=== PATIENT | female | born 1975 | race Two or more races ===

== ENCOUNTER 2025-07-15 13:41 | Inpatient (IN) | payer MEDICAID, OTHER ==
[~2025-07-15] VITALS: Ht 154.9 cm; Wt 68.1 kg
--- NOTE | 2025-07-15 15:08 | ED.PDOC ---
History of Present Illness HPI Comments 49-year-old female presents with a chief complaint of chest pain x 2 days. Patient states that her pain is localized to her sternal region and right chest region, nonradiating, describes as sharp, and states that the pain began spontaneously. Patient mentions that the pain began while she was cleaning at home. 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 Hx Family History Family History: Reviewed,noncontributory to illness Social History Smoker: Non-Smoker Alcohol: Denies ETOH Use Drugs: Denies Drug Use Lives In: Home Constitutional: denies: chills, diaphoresis, fatigue, fever, malaise, sweats, weakness, others EENTM: denies: blurred vision, double vision, ear bleeding, ear discharge, ear drainage, ear pain, ear ringing, eye pain, eye redness, hearing loss, mouth pain, mouth swelling, nasal discharge, nose bleeding, nose congestion, nose pain, photophobia, tearing, throat pain, throat swelling, voice changes, others Respiratory: denies: cough, hemoptysis, orthopnea, SOB at rest, shortness of breath, SOB with excertion, stridor, wheezing, others Cardiovascular: reports: chest pain; denies: dizzy spells, diaphoresis, Dyspnea on exertion, edema, irregular heart beat, left arm pain, lightheadedness, palpitations, PND, syncope, others Gastrointestinal: denies: abdomen distended, abdominal pain, blood streaked bowels, constipated, diarrhea, dysphagia, difficulty swallowing, hematemesis, melena, nausea, poor appetite, poor fluid intake, rectal bleeding, rectal pain, vomiting, others Genitourinary: denies: abnormal vagina bleeding, burning, dyspareunia, dysuria, flank pain, frequency, hematuria, incontinence, pain, , vagina discharge, urgency, others Neurological: denies: dizziness, fainting, headache, left sided numbness, left sided weakness, numbness, paresthesia, pre-existing deficit, right sided numbness, right sided weakness, seizure, speech problems, tingling, tremors, weakness, others Musculoskeletal: denies: back pain, gout, joint pain, joint swelling, muscle pain, muscle stiffness, neck pain, others Integumetry: denies: bruises, change in color, change in hair/nails, dryness, laceration, lesions, lumps, rash, wounds, others Allergic/Immunocompromised: denies: Difficulty Healing, Frequent Infections, Hives, Itching, others Hematologic/Lymphatic: denies: anemia, blood clots, easy bleeding, easy bruising, swollen glands, others Endocrine: denies: excessive hunger, excessive sweating, excessive thirst, excessive urination, flushing, intolerance to cold, intolerance to heat, unexplained weight gain, unexplained weight loss, others Psychiatric: denies: anxiety, bipolar disorder, depression, hopeless, panic disorder, schizophrenia, sleepless, suicidal, others All Other Systems: Reviewed and Negative Physical Exam General Appearance: No Apparent Distress, Normal HEENT: Normal ENT Inspection, Pharynx Normal, TMs Normal Neck: Full Range of Motion, Non-Tender, Normal, Normal Inspection Respiratory: Chest Non-Tender, Lungs Clear, No Accessory Muscle Use, No Respiratory Distress, Normal Breath Sounds Cardiovascular: No Edema, No JVD, No Murmur, No Gallop, Normal Peripheral Pulses, Regular Rate/Rhythm Breast Exam: Deferred Gastrointestinal: No Organomegaly, Non Tender, No Pulsatile Mass, Normal Bowel Sounds, Soft Genitalia: Deferred Pelvic: Deferred Rectal: Deferred Extremities: No calf tenderness, Normal capillary refill, Normal inspection, Normal range of motion, Non-tender, No pedal edema Musculoskeletal : Apperance: Normal Neurologic: Alert, manufacturing controls engineer II-XII nml as Tested, No Motor Deficits, Normal Affect, Normal Mood, No Sensory Deficits Cerebellar Function: Normal Reflexes: Normal Skin: Dry, Normal Color, Warm Lymphatic: No Adenopathy Was a procedure done? Was a procedure done?: No EKG EKG : Pulse Rate (adult): 62 [place]: Normal Cardiac Rhythm: NSR Block: None Hypertrophy: None ST: Normal Differential Dx Considerations may include: Differential diagnosis includes STEMI, NSTEMI, pleurisy, chest wall pain, anxiety, pneumonia, lung mass, GERD. However patient appears to be quite calm and not anxious person. She states that she had one episode of chest pain just like this two months ago but she did never saw anybody. I will admit the patient for unstable angina to be assessed by drier feeder Due to concerns for patients condition deteriorating, the care required my highest level of attention and readiness to intervene. I assessed the patient, reviewed the medical records, ordered the appropriate tests and treatments, then reassessed for results and responsiveness. I communicated with medical personnel and consultants and formulated a plan of care. Total critical care time excludes any procedures X-Ray, Labs, Meds, VS Vital Signs Date Time Temp Pulse Resp B/P (MAP) Pulse Ox O2 Delivery O2 Flow Rate FiO2 07/15/25 16:23 84 18 96 Room Air* 0 21 07/15/25 15:44 98.6 67 16 144/79 (100) 97 98.6 07/15/25 15:08 62 07/15/25 14:37 62 07/15/25 13:48 70 07/15/25 13:44 98.4 71 18 142/52 97 98.4 Lab Test 07/15/25 16:02 07/15/25 13:56 Range/Units Troponin I High Sensitivity 19 18 </=34 ng/L White Blood Count 4.3 L 4.4-10.8 10^3/uL Red Blood Count 3.87 L 4.0-5.20 10^6/uL Hemoglobin 11.5 L 12.2-16.2 g/dL Hematocrit 34.1 L 36.0-46.0 % Mean Corpuscular Volume 88.1 80.0-100.0 fL Mean Corpuscular Hemoglobin 29.8 28.0-32.0 pg Mean Corpuscular Hemoglobin Concent 33.8 32.0-36.0 g/dL Red Cell Distribution Width 15.4 H 11.8-14.3 % Platelet Count 240 140-450 10^3/uL Mean Platelet Volume 8.6 6.9-10.8 fL Neutrophils (%) (Auto) 45.9 37.0-80.0 % Lymphocytes (%) (Auto) 41.5 10.0-50.0 % Monocytes (%) (Auto) 10.1 0.0-12.0 % Eosinophils (%) (Auto) 2.1 0.0-7.0 % Basophils (%) (Auto) 0.4 0.0-2.0 % Neutrophils # (Auto) 2.0 1.6-8.6 10 ^3/uL Lymphocytes # (Auto) 1.8 0.4-5.4 10 ^3/uL Monocytes # (Auto) 0.4 0-1.3 10 ^3/uL Eosinophils # (Auto) 0.1 0-0.8 10 ^3/uL Basophils # (Auto) 0 0-0.2 10 ^3/uL Nucleated Red Blood Cells 0.2 % Sodium Level 139 136-145 mmol/L Potassium Level 3.9 3.5-5.1 mmol/L Chloride Level 104 98-107 mmol/L Carbon Dioxide Level 28 20-31 mmol/L Anion Gap 7 5-15 Blood Urea Nitrogen 13 9-23 mg/dL Creatinine 0.70 0.550-1.02 mg/dL Glomerular Filtration Rate Calc 107 >90 mL/min BUN/Creatinine Ratio 18.6 10.0-20.0 Serum Glucose 80 74-106 mg/dL Calcium Level 9.0 8.7-10.4 mg/dL Current Medications Medications (Trade) Dose Ordered Sig/Lucia Route Start Time Stop Time Status Last Admin Acetaminophen/ Hydrocodone Bitart ([place] 5/325MG Tab) 1 tab ONCE ONCE PO 07/15/25 15:00 07/15/25 15:03 DC 07/15/25 16:22 Time of 1ST Reevaluation: 15:28 Reevaluation 1ST: Unchanged Patient Education/Counseling: Diagnosis, Treatment, Need For Follow Up Family Education/Counseling: No Family Present SEPSIS Sepsis Screen Date sepsis recognized/suspect: Jul 15, 2025 Time Sepsis recognized/suspect: 1344 Recent Procedure: No On Antibiotic Therapy: No Respiratory Rate >20: No Heart Rate >90: No Temp<36 C (96.8 F) or >38.3 C: No SBP <90 or MAP <65 mmHG: No New Acute Mental Status Change: No Is the patient on CPAP, BIPAP,: No Physician Orders Electrocardigram (07/15/25 13:53) Electrocardigram (07/15/25 14:53) Urinalysis (07/15/25 13:58) Troponin-I Hs (07/15/25 17:48) Chest Xray 1 View (07/15/25 15:00) Continuous Ekg Monitoring 08,12,16,20,00,04 (8/20/25 15:00) Head Without Contrast (07/15/25 15:00) Vital Signs Date Time Temp Pulse Resp B/P (MAP) Pulse Ox O2 Delivery O2 Flow Rate FiO2 07/15/25 16:23 84 18 96 Room Air* 0 21 07/15/25 15:44 98.6 67 16 144/79 (100) 97 98.6 07/15/25 15:08 62 07/15/25 14:37 62 07/15/25 13:48 70 07/15/25 13:44 98.4 71 18 142/52 97 98.4 Laboratory Tests Test 07/15/25 13:56 White Blood Count 4.3 10^3/uL (4.4-10.8) L Medications Medications Dose Ordered Sig/Lucia Route Start Time Stop Time Status Last Admin Dose Admin Acetaminophen/ Hydrocodone Bitart 1 tab ONCE ONCE PO 07/15/25 15:00 07/15/25 15:03 DC 07/15/25 16:22 Departure 1 Departure Time of Disposition: 18:20 Impression: Primary Impression: Unstable angina Disposition: ADMITTED INPATIENT Admit to: Tele Condition: Serious Discharged With: Self Critical Care Note Critical Care Time?: Yes (45 min-critical care time only) Critical care comment: Due to concerns for patients condition deteriorating, the care required my highest level of attention and readiness to intervene. I assessed the patient, reviewed the medical records, ordered the appropriate tests and treatments, then reassessed for results and responsiveness. I communicated with medical personnel and consultants and formulated a plan of care. Total critical care time excludes any procedures Stability Stability form required: No Heart Score Heart Score: Heart Score Response (Comments) Value History Highly Suspicious 2 EKG Normal 0 Age 45-64 1 Risk Factors 1 or 2 risk factors 1 Troponin 1-2 x's Normal limit 1 Total 5 I personally scribed for BRADY JIMENEZ MD ([email or web address]) on 07/15/25 at 15:08. Electronically submitted by Saad Spring ([email or web address]). BRADY JIMENEZ MD Jul 15, 2025 15:08
--- NOTE | 2025-07-15 15:27 | DVH ---
CHEST RADIOGRAPH Indication: CP Technique: Single frontal view of the chest was obtained Comparison: None FINDINGS: Lines and Tubes: None Lungs: No focal consolidation. Pleura: No effusion. No pneumothorax. Cardiomediastinal contours: Unremarkable Bones: No acute osseous abnormality. Deformity of the left humeral head. IMPRESSION: No acute cardiopulmonary disease.
--- NOTE | 2025-07-15 15:39 | DVH ---
CT brain without contrast CLINICAL INDICATION: HEADACHE FINDINGS: The study was performed in a multidetector scanner. This study performed taking axial image s from the skull base up to the vertex. Both brain and bone windows are photographed. Dose lowering techniques have been used including automated exposure control and adjustment of mA and /or KV according to patient size. Normal and symmetrical shape and density of brain parenchyma above and below the tentorium is seen. T here is no mass, midline shift or hydrocephalus. No intra/extra-axial collections demonstrated. There is no intracranial hemorrhage. The calvarium is intact. IMPRESSION: 1. Normal brain and skull. Computed Tomographic Radiation Dosimetry Report: Total CTDI vol = 54.58mGy Total DLP = 1.71mGy-cm All CT scans at this medical facility are performed using dose modulation techniques as appropriate to a performed exam including the following: Automated exposure control was utilized; adjustment of the M A and/or KvP according to patient size; and use of iterative reconstruction technique.
[2025-07-15 16:15] LABS: Chloride 104 mmol/L (98-107); Potassium 3.9 mmol/L (3.5-5.1); Sodium 139 mmol/L (136-145)
[2025-07-15 16:16] LABS: Anion Gap 7 (5-15); Carbon Dioxide 28 mmol/L (20-31); Hematocrit 34.1 % (36.0-46.0); Hemoglobin 11.5 g/dL (12.2-16.2); Mean Corpuscular Hemoglobin 29.8 pg (28.0-32.0); Mean Corpuscular Volume 88.1 fL (80.0-100.0); Nucleated Red Blood Cells % 0.2 %
[2025-07-15 16:17] LABS: Calcium 9.0 mg/dL (8.7-10.4)
[2025-07-15 16:21] LABS: BUN/Creatinine Ratio 18.6 (10.0-20.0); Blood Urea Nitrogen 13 mg/dL (9-23); Glucose 80 mg/dL (74-106)
[2025-07-15] MEDS: HYDROcodone-ACET 5/325MG TAB PO ONE (16:22)
[2025-07-15 16:23] VITALS: PULSE 84; RESP 18; O2SAT 96
[2025-07-15 20:16] LABS: Urine Amorphous Crystal FEW /hpf (None Seen); Urine Protein, UAD Negative (Negative)
--- NOTE | 2025-07-15 23:12 | DVHHP2 ---
History of Present Illness History of Present Illness This is a 49 year old female with past medical history of HTN on losartan-HCTZ came to ER with a complaint of chest pain for last 3 days, which is worsen around 11:00 a.m, 8/10 intensity, substernal, localized, no aggravating or relieving factors and pain persist approximately 2 hours. Chest pain started during cleaning her house but not associated with any nausea, vomiting, SOB, palpitation, sweating, visual disturbance. Patient stated her father, mother, grandfather having history of CAD. Patient also complain headache which is on and off not associated with any symptoms. Denies any smoking, ETOH or any substance abuse. Currently patient evaluated in ER, denies any SOB, headache, any other focal weakness. Never seen by agricultural crop farm manager, no stress test or angiogram done before. 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 Dyspnea, Edema, Lt Headedness, Other Gastrointestinal: No: Nausea, Vomiting, Abdominal Pain, Diarrhea, Constipation, Melena, Hematochezia, Other Genitourinary: No Dysuria, No Frequency, No Incontinence, No Hematuria, No Retention, No Other Musculoskeletal: No: other, neck pain, shoulder pain, arm pain, back pain, hand pain, leg pain, foot pain Skin: No: Rash, Lesions, Jaundice, Bruising, Other Neurological: No: Weakness, Numbness, Incoordination, Change in speech, Confusion, Seizures, Other Allergies: Coded Allergies: Amoxicillin (Verified Allergy, Unknown, 07/15/25) Medications Current Medications Medications Dose Ordered Sig/Lucia Route Start Time Stop Time Status Last Admin Dose Admin Acetaminophen 650 mg Q6HP PRN PO 07/15/25 23:15 UNV Nitroglycerin 0.4 mg Q5MINP PRN SL 07/15/25 23:15 UNV Morphine Sulfate 2 mg Q30M PRN IV 07/15/25 23:15 UNV Exam Vital Signs Vital Signs Date Time Temp Pulse Resp B/P (MAP) Pulse Ox O2 Delivery O2 Flow Rate FiO2 07/15/25 22:37 98.4 65 16 134/93 (107) 99 98.4 07/15/25 20:22 Room Air 07/15/25 16:23 0 21 General Appearance: Alert, Oriented X3, Cooperative HEENT: Atraumatic, PERRLA, EOMI Respiratory: Clear to auscultation, Normal air movement Cardiovascular: Normal S1, No murmurs Abdominal: Normal bowel sounds, Soft, No tenderness Extremities: No clubbing, No cyanosis, No edema Skin: No rashes, No breakdown, No significant lesion Neuro: Normal gait, Normal speech, Strength at 5/5 X4 ext, Normal tone, Sensation intact Labs/Xrays Labs Test 07/15/25 19:00 07/15/25 18:10 07/15/25 13:56 Range/Units Urine Color Light-yellow Yellow Urine Clarity Clear Clear Urine pH 7.0 5.0-9.0 Urine Specific [place] 1.022 1.001-1.035 Urine Protein Negative Negative Urine Ketones Negative Negative Urine Blood Negative Negative /uL Urine Nitrite Negative Negative Urine Bilirubin Negative Negative Urine Urobilinogen Normal Negative mg/dL Urine Leukocyte Esterase 1+ Negative /uL Urine RBC 1 0 - 4 /hpf Urine Microscopic WBC 6 H 0-5 /HPF Urine Squamous Epithelial Cells Few <5 /hpf Urine Amorphous Crystals Few None Seen /hpf Urine Bacteria None seen None Seen /hpf Urine Glucose Normal Normal mg/dL Troponin I High Sensitivity 19 </=34 ng/L White Blood Count 4.3 L 4.4-10.8 10^3/uL Red Blood Count 3.87 L 4.0-5.20 10^6/uL Hemoglobin 11.5 L 12.2-16.2 g/dL Hematocrit 34.1 L 36.0-46.0 % Mean Corpuscular Volume 88.1 80.0-100.0 fL Mean Corpuscular Hemoglobin 29.8 28.0-32.0 pg Mean Corpuscular Hemoglobin Concent 33.8 32.0-36.0 g/dL Red Cell Distribution Width 15.4 H 11.8-14.3 % Platelet Count 240 140-450 10^3/uL Mean Platelet Volume 8.6 6.9-10.8 fL Neutrophils (%) (Auto) 45.9 37.0-80.0 % Lymphocytes (%) (Auto) 41.5 10.0-50.0 % Monocytes (%) (Auto) 10.1 0.0-12.0 % Eosinophils (%) (Auto) 2.1 0.0-7.0 % Basophils (%) (Auto) 0.4 0.0-2.0 % Neutrophils # (Auto) 2.0 1.6-8.6 10 ^3/uL Lymphocytes # (Auto) 1.8 0.4-5.4 10 ^3/uL Monocytes # (Auto) 0.4 0-1.3 10 ^3/uL Eosinophils # (Auto) 0.1 0-0.8 10 ^3/uL Basophils # (Auto) 0 0-0.2 10 ^3/uL Nucleated Red Blood Cells 0.2 % Sodium Level 139 136-145 mmol/L Potassium Level 3.9 3.5-5.1 mmol/L Chloride Level 104 98-107 mmol/L Carbon Dioxide Level 28 20-31 mmol/L Anion Gap 7 5-15 Blood Urea Nitrogen 13 9-23 mg/dL Creatinine 0.70 0.550-1.02 mg/dL Glomerular Filtration Rate Calc 107 >90 mL/min BUN/Creatinine Ratio 18.6 10.0-20.0 Serum Glucose 80 74-106 mg/dL Calcium Level 9.0 8.7-10.4 mg/dL SEPSIS Sepsis Screen Date sepsis recognized/suspect: Jul 15, 2025 Time Sepsis recognized/suspect: 2024 Recent Procedure: No On Antibiotic Therapy: No Respiratory Rate >20: No Heart Rate >90: No Temp<36 C (96.8 F) or >38.3 C: No SBP <90 or MAP <65 mmHG: No New Acute Mental Status Change: No Is the patient on CPAP, BIPAP,: No Physician Orders Iron Panel (07/15/25 22:30) Ferritin (07/15/25 22:30) Stool Occult Blood (07/15/25 22:34) Drug Screen (07/15/25 22:35) Communication Order (07/15/25 22:35) Admit (07/15/25 23:06) Code Status (07/15/25 23:06) Cardiac Diet-2gna,Lofat,Lochol (07/16/25 Breakfast) Echo 2d Mode Cardiac Dop (07/15/25 23:06) Acetaminophen Tablet (Tylenol Tablet) (07/15/25 23:15) Nitroglycerin Sublingual (Ntrostat Subli (07/15/25 23:15) Morphine Sulfate Injection (07/15/25 23:15) Notify Of Changes From Base (07/15/25 23:06) Secondary Education Professor For 24 Hours (07/15/25 23:06) Emergency Dysrhythmia Protocol (07/15/25 23:06) Rhythm Strips Once Every Shift (07/15/25 23:06) Losartan Tablet (Cozaar Tablet) (07/16/25 10:00) Hydrochlorothiazide Tablet (Hydrochlorot (07/16/25 10:00) Vital Signs Date Time Temp Pulse Resp B/P (MAP) Pulse Ox O2 Delivery O2 Flow Rate FiO2 07/15/25 22:37 98.4 65 16 134/93 (107) 99 98.4 07/15/25 20:22 98.8 64 20 121/79 (93) 98 98.8 07/15/25 20:22 64 20 99 Room Air 07/15/25 18:18 98.3 64 16 140/66 (90) 99 98.3 07/15/25 16:23 84 18 96 Room Air* 0 21 07/15/25 15:44 98.6 67 16 144/79 (100) 97 98.6 Laboratory Tests Test 07/15/25 13:56 White Blood Count 4.3 10^3/uL (4.4-10.8) L Medications Medications Dose Ordered Sig/Lucia Route Start Time Stop Time Status Last Admin Dose Admin Acetaminophen/ Hydrocodone Bitart 1 tab ONCE ONCE PO 07/15/25 15:00 07/15/25 15:03 DC 07/15/25 16:22 1 TAB Assessment/Plan Assessment/Plan Chest pain to rule out ACS In ER patient received [place] 5-[address] head without contrast: No intracranial abnormality. CXR: no cardiopulmonary disease. EKG: Sinus rhythm, HR 62, QTC 439 Troponin 18>19>19 Will start statin after calculating ASCVD score. Lipid profile, HbA1c, UDS ordered Echo ordered Telemetry monitors Headache CT head without contrast:There is no mass, midline shift or hydrocephalus. No intra/extra-axial collections demonstrated. There is no intracranial hemorrhage. Tylenol 650 mg p.o. q.6 p.r.n. Chest pain due to Costochondritis Sternal area tender on deep palpation Patient received [place] at ER and pain improving Tylenol 650 mg p.o. q.6 p.r.n. Essential hypertension Losartan-HCTZ 25-12.5 mg p.o. daily Monitor blood pressure Cardiac diet Iron-deficiency anemia Hemoglobin 11.5, HCT 34.1 MCH 29.8, MCV 78.3, RDW 15.4 No signs symptoms of active bleeding Iron panel, ferritin, occult blood test ordered Diet: Cardiac GI prophylaxis: Pantoprazole 40 mg p.o. daily DVT prophylaxis: Patient ambulating Goals of care discussions, more than 28 minute spent with patient. Full code status. Case discussed with Dr. Byers Plan discussed with: Patient, Other (Nurse) My Orders Orders - ANNIA CHEN RESIDENT Procedure Category Date Status Time Admit ADMIT 07/15/25 Transmitted 23:06 Code Status CODE 07/15/25 Transmitted 23:06 Cardiac DIET 07/16/25 Transmitted Diet-2gna,Lofat,Lochol Breakfast Echo 2d Mode Cardiac US 07/15/25 Transmitted DOP 23:06 Acetaminophen Tablet [facility]A 07/15/25 Transmitted (Tylenol Tablet) 23:15 Nitroglycerin PHA 07/15/25 Transmitted Sublingual (Ntrostat 23:15 Morphine Sulfate PHA 07/15/25 Transmitted Injection 23:15 Notify Of Changes [facility] 07/15/25 Transmitted From Base 23:06 Secondary Education Professor For [facility] 07/15/25 Transmitted 24 Hours 23:06 Emergency Dysrhythmia [facility] 07/15/25 Transmitted Protocol 23:06 Rhythm Strips Once [facility] 07/15/25 Transmitted Every Shift 23:06 Losartan Tablet [facility] 07/16/25 Transmitted (Cozaar Tablet) 10:00 Hydrochlorothiazide [facility] 07/16/25 Transmitted Tablet (Hydrochlorot 10:00 Date of Service: Jul 15, 2025 Billing Provider: DELVIN BYERS MD Common Visit Codes: 05402-YWNGPXP INP/OBS CARE (HIGH) Secondary Visit Codes: 40053-[id number] CARE PLAN 30 MINUTES ANNIA CHEN RESIDENT Jul 15, 2025 23:12
[2025-07-15] MEDS ORDERED: NITROGLYCERIN 0.4 MG SL TAB SL PRN (23:15)
[2025-07-15] MEDS ORDERED: MORPHINE SULFATE INJ 2 MG/ml SYRG IV PRN (23:15)
[2025-07-15 23:47] LABS: Iron 89.0 ug/dL (50-170)
[2025-07-15 23:50] LABS: Total Iron Binding Capacity 416.0 ug/dL (250-425)
[2025-07-16] VITALS (9 sets, daily range): BP systolic 104–148; BP diastolic 53–83; PULSE 58–79; RESP 16–19; TEMP 97.7–98; O2SAT 96–100
--- NOTE | 2025-07-16 00:27 | ECG ---
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
[2025-07-16] MEDS: PANTOPRAZOLE 40 MG TAB PO SCH (05:33)
[2025-07-16 06:24] LABS: Opiate Scree,Urine Neg (NEGATIVE); Phencyclidine Screen, Urine Neg (NEGATIVE)
[2025-07-16 06:33] LABS: Amphetamine Screen, Urine Neg (NEGATIVE); Barbiturate Scree,Urine Neg (NEGATIVE); Benzodiazephine Screen, Urine Neg (NEGATIVE); Cannabinoid Screen, Urine Neg (NEGATIVE); Cocaine Screen, Urine Neg (NEGATIVE)
--- NOTE | 2025-07-16 07:01 | ECG ---
[facility] Test Date: 2025-07-15 Test Time: 13:48:51 Pat Name: ADAIR ZAMORANO Department: ED Room: 0286T Gender: F Business Executive: ovidio : 1975 Requested By: EMERGENCY EMERGENCY Order Number: [id number] Reading MD: Measurements Intervals [place] Rate: 70 P: 22 CA: 140 QRS: 55 QRSD: 118 T: 68 QT: 429 QTc: 463 Interpretive Statements Sinus rhythm Ventricular premature complex Probable left atrial enlargement Nonspecific intraventricular conduction delay Nonspecific T abnormalities, lateral leads Please click the below link to view image of tracing.
[2025-07-16 07:47] LABS: Alanine Aminotransferase 19 U/L (7-40); Albumin 4.2 g/dL (3.2-4.8); Anion Gap 8 (5-15); BUN/Creatinine Ratio 14.5 (10.0-20.0); Bilirubin, Total 0.3 mg/dL (0.2-1.0); Blood Urea Nitrogen 9 mg/dL (9-23); Calcium 9.2 mg/dL (8.7-10.4); Carbon Dioxide 28 mmol/L (20-31); Chloride 105 mmol/L (98-107); Glucose 80 mg/dL (74-106); Potassium 3.6 mmol/L (3.5-5.1); Sodium 141 mmol/L (136-145); Total Protein 7.2 g/dL (5.7-8.2)
[2025-07-16 07:50] LABS: Alkaline Phosphatase 124 U/L (46-116)
[2025-07-16 08:45] LABS: Triglycerides 82 mg/dL (< 150)
[2025-07-16 08:47] LABS: Cholesterol 179 mg/dL (< 200)
[2025-07-16 08:49] LABS: HDL Cholesterol 66 mg/dL (40-59)
[2025-07-16] MEDS: LOSARTAN POTASSIUM 25 MG TAB PO SCH (08:53)
[2025-07-16] MEDS: hydroCHLOROthiazide 25 MG TAB PO SCH (08:54)
[2025-07-16] MEDS: ACETAMINOPHEN 325 MG TAB PO PRN (12:12)
--- NOTE | 2025-07-16 19:39 | DVHPNRES ---
Progress Note Date Seen: Jul 16, 2025 Resident Creating Document: FAUSTO OCONNOR RESIDENT Medical Necessity Reason Pt with a Central, PICC or Fol: No Subjective Review of Systems 43-year-old female with past medical history of hypertension came to the hospital with complaints of chest pain and headache for 2 days. She describes the pain as 9/10 in intensity, radiating to the right arm with no aggravating or relieving factors. She sees her parents and grandparents had history of acute coronary syndrome. PMHx: Hypertension PSHx: Denies Family history: History of acute coronary syndrome in parents Social history: Denies alcohol smoking or recreational drugs Home medication: Losartan hydrochlorothiazide Allergic history: Amoxicillin General: patient denies fever, fatigue, weaknes, sweating, any recent changes in appetite and weight HEENT: Complains of headache Cardiovascular: Denies chest pain, palpitations, dyspnea on exertion, orthopnea, or claudication. Respiratory: No cough, and wheezing. Gastrointestinal: Denies nausea, vomiting, dysphagia, odynophagia, heartburn, abdominal pain, flatulence, bloating, diarrhea, constipation, change in stool, or blood in stool. Genitourinary: No dysuria, hematuria, discharge, frequency, urgency, nocturia, incontinence, and urinary retention. Endocrine: No heat or cold intolerance, polydipsia, polyuria, and polyphagia. Neurological: No dizziness, extremity weakness and numbness, tremors, gait disturbance, seizures, and memory impairment. Psychiatric: Denies depression, anxiety,or insomnia. Musculoskeletal: Denies neck pain, stiffness and swelling, back pain, muscle weakness, joint pain, stiffness, swelling, or limited range of motion. Skin: No rashes, itching, skin lesion, changes in hair, nail, skin texture and breast. Hematologic/Lymphatic: Denies easy bruising, bleeding tendencies, or lymph node enlargement. Objective vital signs Vital Sign Date Time Temp Pulse Resp B/P (MAP) Pulse Ox O2 Delivery O2 Flow Rate FiO2 07/16/25 17:00 98.0 61 18 129/65 (86) 97 98.0 07/16/25 08:00 Room Air* 0 21 medications Current Medications Medications Dose Ordered Sig/Lucia Route Start Time Stop Time Status Last Admin Dose Admin Acetaminophen 650 mg Q6HP PRN PO 07/15/25 23:15 07/16/25 12:12 650 MG Nitroglycerin 0.4 mg Q5MINP PRN SL 07/15/25 23:15 Morphine Sulfate 2 mg Q30M PRN IV 07/15/25 23:15 Losartan Potassium 25 mg DAILY PO 07/16/25 10:00 07/16/25 08:53 25 MG Hydrochlorothiazide 12.5 mg DAILY PO 07/16/25 10:00 07/16/25 08:54 12.5 MG Pantoprazole Sodium 40 mg DAILY@0600 PO 07/16/25 06:00 07/16/25 05:33 40 MG Ceftriaxone Sodium 50 ml @ 100 mls/hr DAILY@09 IV 07/17/25 09:00 UNV Examination General Appearance: Alert, Oriented X3, Cooperative, No acute distress HEENT: Atraumatic, PERRLA, EOMI, Mucous membrane moist/pink Respiratory: Clear to auscultation, Normal air movement Cardiovascular: Regular rate, Normal S1, Normal S2, tenderness to palpation on right side of chest Abdominal: Normal bowel sounds, Soft, No tenderness, No hepatospenomegaly, No masses Extremities: No clubbing, No cyanosis, No edema, Normal pulses, No tenderness/swelling Skin: No rashes, No breakdown, No significant lesion Neuro: Normal gait, Normal speech, Strength at 5/5 X4 ext, Normal tone, Sensation intact, Cranial nerves 3-12 NL, Reflexes 2+ Psych/Mental Status: Mental status NL, Mood NL laboratory and microbiology Laboratory Tests 07/16/25 05:55 07/15/25 13:56 Test 07/16/25 05:55 Range/Units Serum Glucose 80 74-106 mg/dL Problem List/Assessment/Plan Problem List/Assessment/Plan Noncardiac chest pain Probably Musculoskeletal EKGs sinus rhythm Troponins normal Essential hypertension On losartan hydrochlorothiazide Plan discussed with: Patient ELVINJONATHANDevon RESIDENT Jul 16, 2025 19:39
[2025-07-16] MEDS: cefTRIAXone 1GM/50ML D5W 50 ML IV SCH (21:11)
--- NOTE | 2025-07-16 23:46 | DVHSR ---
APPROVED REPORT EXAM: Two-dimensional and M-mode echocardiogram with Doppler and color Doppler. Blood Pressure: 104/53 mmHg INDICATION Chest Pain RISK FACTORS Height: 61, Weight: 146 DIMENSIONS LVDd3.7 (3.8-5.7cm)LA (2D)4.4 (1.9-4.0cm)Aortic Root2.8 (2.0-3.7cm) LVDs2.7 (2.5-4.0cm)LA (MM) (1.9-4.0cm)Aortic Cusp Exc1.3 (1.5-2.0cm) EF (%) 54.0 (55-70%)Rt. Atrium3.1 (1.9-4.0cm)Asc. Aorta cm Mitral Valve MitralMitral Stenosis E wave0.85m/sMV Mean GR.mmHg A wave0.74m/sMV Peak GR.50mmHg E/A ratio1.12D MVAcm2 DECEL [id number] 1/2 [id number] IVRTmsDop MVA3.29cm2 Aortic Valve Aortic ValveAortic Stenosis V11.24m/Bettie Mean GR.5mmHg V21.39m/Bettie Peak GR.8mmHg LVOT Diameter1.7 (1.8-2.4cm)Doppler AVA2.02cm2 Pulmonic Valve V20.95m/s Tricuspid Valve TR Velocity2.32m/s [id number] Conclusion LV EF IS 65% AND IS NORMAL NORMAL VALVES NORMAL RVSP NORMAL RVSP IS 25 MM OF HG NORMAL RV FUNCTION NO EFFUSION
[2025-07-17 01:00] VITALS: BP 105/68; PULSE 65; RESP 16; TEMP 98; O2SAT 98
[2025-07-17 05:00] VITALS: BP 137/79; PULSE 58; RESP 18; TEMP 97.9; O2SAT 98
[2025-07-17 07:48] LABS: Hematocrit 35.1 % (36.0-46.0); Hemoglobin 12.0 g/dL (12.2-16.2); Mean Corpuscular Hemoglobin 30.3 pg (28.0-32.0); Mean Corpuscular Volume 88.5 fL (80.0-100.0); Nucleated Red Blood Cells % 0.4 %
[2025-07-17 08:00] VITALS: PULSE 69
[2025-07-17 09:00] VITALS: BP 136/76; PULSE 65; RESP 16; TEMP 98.1; O2SAT 97
[2025-07-17 13:00] VITALS: BP 119/67; PULSE 89; RESP 16; TEMP 98; O2SAT 95
[2025-07-17] MEDS ORDERED: CEPH500T PO (16:02)
[2025-07-17 16:40] LABS: Hepatitis B Surface Antigen Negative (Negative)
[2025-07-17 17:00] VITALS: BP 123/82; PULSE 66; RESP 16; TEMP 98.1; O2SAT 96
[2025-07-17 17:01] LABS: Hepatitis C Antibody Negative (Negative)
--- NOTE | 2025-07-17 17:15 | DVHDSRES ---
Discharge Summary Date of Admission Resident Creating Document: FAUSTO OCONNOR RESIDENT Jul 15, 2025 at 23:06 Date of Discharge: Jul 17, 2025 Admitting Diagnosis to rule out ACS Labs/Diagnostic Data: Laboratory Results Test 07/17/25 06:24 07/16/25 21:07 07/16/25 10:52 07/16/25 05:55 White Blood Count 3.8 10^3/uL (4.4-10.8) Red Blood Count 3.96 10^6/uL (4.0-5.20) Hemoglobin 12.0 g/dL (12.2-16.2) Hematocrit 35.1 % (36.0-46.0) Mean Corpuscular Volume 88.5 fL (80.0-100.0) Mean Corpuscular Hemoglobin 30.3 pg (28.0-32.0) Mean Corpuscular Hemoglobin Concent 34.2 g/dL (32.0-36.0) Red Cell Distribution Width 15.5 % (11.8-14.3) Platelet Count 228 10^3/uL (140-450) Mean Platelet Volume 8.1 fL (6.9-10.8) Neutrophils (%) (Auto) 50.9 % (37.0-80.0) Lymphocytes (%) (Auto) 36.1 % (10.0-50.0) Monocytes (%) (Auto) 10.9 % (0.0-12.0) Eosinophils (%) (Auto) 1.7 % (0.0-7.0) Basophils (%) (Auto) 0.4 % (0.0-2.0) Neutrophils # (Auto) 1.9 10 ^3/uL (1.6-8.6) Lymphocytes # (Auto) 1.4 10 ^3/uL (0.4-5.4) Monocytes # (Auto) 0.4 10 ^3/uL (0-1.3) Eosinophils # (Auto) 0.1 10 ^3/uL (0-0.8) Basophils # (Auto) 0 10 ^3/uL (0-0.2) Nucleated Red Blood Cells 0.4 % Erythrocyte Sedimentation Rate 25 mm/hr (0-20) Stool Occult Blood Sample #3 Negative (Negative) Sodium Level 141 mmol/L (136-145) Potassium Level 3.6 mmol/L (3.5-5.1) Chloride Level 105 mmol/L (98-107) Carbon Dioxide Level 28 mmol/L (20-31) Anion Gap 8 (5-15) Blood Urea Nitrogen 9 mg/dL (9-23) Creatinine 0.62 mg/dL (0.550-1.02) Glomerular Filtration Rate Calc 110 mL/min (>90) BUN/Creatinine Ratio 14.5 (10.0-20.0) Serum Glucose 80 mg/dL (74-106) Hemoglobin A1c 5.7 % A1C (<5.7) Calcium Level 9.2 mg/dL (8.7-10.4) Total Bilirubin 0.3 mg/dL (0.2-1.0) Aspartate Amino Transferase (AST) 23 U/L (13-40) Alanine Aminotransferase (ALT) 19 U/L (7-40) Alkaline Phosphatase 124 U/L (46-116) C-Reactive Protein High Sensitivity 0.03 mg/dL (<1.0) Total Protein 7.2 g/dL (5.7-8.2) Albumin 4.2 g/dL (3.2-4.8) Triglycerides Level 82 mg/dL (< 150) Cholesterol Level 179 mg/dL (< 200) LDL Cholesterol 111 mg/dL (< 100) HDL Cholesterol 66 mg/dL (40-59) Vitamin D 25-Hydroxy 32.1 ng/mL (30.0-100) Thyroid Stimulating Hormone (TSH) 2.20 uIU/mL (0.55-4.78) Test 07/15/25 19:00 07/15/25 18:10 Urine Color Light-yellow (Yellow) Urine Clarity Clear (Clear) Urine pH 7.0 (5.0-9.0) Urine Specific [place] 1.022 (1.001-1.035) Urine Protein Negative (Negative) Urine Ketones Negative (Negative) Urine Blood Negative /uL (Negative) Urine Nitrite Negative (Negative) Urine Bilirubin Negative (Negative) Urine Urobilinogen Normal mg/dL (Negative) Urine Leukocyte Esterase 1+ /uL (Negative) Urine RBC 1 /hpf (0 - 4) Urine Microscopic WBC 6 /HPF (0-5) Urine Squamous Epithelial Cells Few /hpf (<5) Urine Amorphous Crystals Few /hpf (None Seen) Urine Bacteria None seen /hpf (None Seen) Urine Glucose Normal mg/dL (Normal) Urine Test Negative (Negative) Urine Opiates Screen Neg (NEGATIVE) Urine Fentanyl Screen Neg (NEGATIVE) Urine Barbiturates Screen Neg (NEGATIVE) Urine Phencyclidine Screen Neg (NEGATIVE) Urine Amphetamines Screen Neg (NEGATIVE) Urine Benzodiazepines Screen Neg (NEGATIVE) Urine Cocaine Screen Neg (NEGATIVE) Urine Cannabinoids Screen Neg (NEGATIVE) Iron Level 89 ug/dL (50-170) Total Iron Binding Capacity 416 ug/dL (250-425) Percent Iron Saturation 21.4 % (15-50) Ferritin 6.0 ng/mL (10-291) Troponin I High Sensitivity 19 ng/L (</=34) Other Laboratory Tests 07/17/25 06:24 07/16/25 05:55 Brief Hx & Hospital Course: 43-year-old female with past medical history of hypertension came to the hospital with complaints of chest pain and headache for 2 days. She describes the pain as 9/10 in intensity, radiating to the right arm with no aggravating or relieving factors. She sees her parents and grandparents had history of acute coronary syndrome. EKG was done which revealed normal sinus rhythm. Troponin levels were normal. Echo showed left ventricular ejection fraction of 65% with normal valves and RV function. CT head revealed normal brain and skull with no acute intracranial abnormalities. Patient is symptomatically better and is being discharged. Condition at Discharge: Good Final Diagnosis/Problems List Noncardiac chest pain, Probably Musculoskeletal Essential hypertension Discharge Disposition: Home Discharge Instruct/Medications Scheduled Cephalexin Monohydrate (Cephalexin), 500 MG PO BID Discharge Statement: "Patient was advised to return to the ER or call 911 if any headaches, dizziness, shortness of breath, chest pain, abdominal pain, bleeding, fevers, or worsening of medical condition. Patient was counseled about treatment plan, medications, possible side effects, patientverbalized understanding. All questions were answered to the best of my ability. This discharge took greater then 30 minutes in planning, reviewing documentation, counseling the patient, and discussing with other team members." ASSESSMENT ASSESSMENT Assessment FAUSTO OCONNOR RESIDENT Jul 17, 2025 14:29
== END 2025-07-17 18:55 | disposition home or self-care (01) | DRG 203 ==
LOC: EDSEX 13:41 → ER 13:41 → OVERFLOW 23:06 → TELE-WESTW 23:37
PROVIDERS: ADMIT Student in an Organized Health Care Education/Training Program; ATTEND Internal Medicine
DX: M94.0 Chondrocostal junction syndrome [Tietze] (principal); D50.9 Iron deficiency anemia, unspecified; I10 Essential (primary) hypertension; Z88.0 Allergy status to penicillin; Z82.49 Family history of ischemic heart disease and other diseases of the circulatory system; Z79.899 Other long term (current) drug therapy
CPT/HCPCS: 36415; 70450; 71045; 80048; 80053; 80061; 80307; 81001; 81025; 82270; 82306; 82728; 83036; 83540; 83550; 84443; 84484; 85025; 85652; 86141; 86803; 87340; 93005; 93306; 99291; G0378